=== PATIENT | female | born 1975 | race African-American/Black ===

== ENCOUNTER 2020-03-29 20:28 | Emergency (ER) | payer SELFPAY ==
[~2020-03-29] VITALS: Ht 172.7 cm; Wt 77.3 kg
[2020-03-29] MEDS ORDERED: HYDROCODONE/ACETAMINOPHEN 5-325 MG TABLET PO ONE (20:45)
[2020-03-29] MEDS ORDERED: IBUPROFEN 800 MG TABLET PO ONE (20:45)
[2020-03-29 21:45] VITALS: BP 118/62
== END 2020-03-29 22:00 | disposition home or self-care (01) ==
LOC: EMS 20:30
DX: S63.591A Other specified sprain of right wrist, initial encounter (principal); J45.909 Unspecified asthma, uncomplicated; W05.1XXA Fall from non-moving nonmotorized scooter, initial encounter; Y93.89 Activity, other specified; Y92.89 Other specified places as the place of occurrence of the external cause; Y99.8 Other external cause status